=== PATIENT | male | born 1950 | race Two or more races ===

== ENCOUNTER 2019-11-15 09:00 | Outpatient (CLI) | payer OTHER | END 2019-11-15 09:13 | disposition home or self-care (01) | LOC: NUCLEAR 09:00 | DX: I70.262 Atherosclerosis of native arteries of extremities with gangrene, left leg (principal) ==

== ENCOUNTER 2019-12-23 06:00 | Day surgery (SDC) | payer OTHER ==
[~2019-12-23 06:00] MED LIST: ASPIR 8181 MG PO; ATORVASTATIN CA40 MG PO; GABAPENTIN300 M2 PO; JENTADUETO 2.51 EAC2 PO; PLAVIX75 MG PO
== END 2019-12-23 18:15 | disposition home or self-care (01) ==
LOC: CIR.AMB 06:00
PROVIDERS: ATTEND Surgery
DX: I96 Gangrene, not elsewhere classified (principal); M86.172 Other acute osteomyelitis, left ankle and foot

== ENCOUNTER 2020-01-15 21:00 | Emergency (ER) | payer OTHER ==
[~2020-01-15] VITALS: Ht 170.2 cm; Wt 74.8 kg
== END 2020-01-16 10:06 | disposition home or self-care (01) ==
LOC: ER 21:00
DX: E11.52 Type 2 diabetes mellitus with diabetic peripheral angiopathy with gangrene (principal); I96 Gangrene, not elsewhere classified; C94.81 Other specified leukemias, in remission; Z79.84 Long term (current) use of oral hypoglycemic drugs; Z89.412 Acquired absence of left great toe